=== PATIENT | female | born 2000 | race Caucasian/White ===

== ENCOUNTER → 2024-09-30 | Outpatient (CLI) | payer OTHER, SELFPAY ==
--- NOTE | 2024-10-01 07:30 | STRESSREP ---
Stress Test Report Exercise stress test. 24-year-old lady with a history of cardiac dysrhythmia Stress protocol: Resting EKG demonstrates normal sinus rhythm with a rate of 69 bpm resting blood pressure is 110/70 mmHg. The patient exercised according to the regular Paul protocol for a total duration of 10 minutes attaining a maximum heart rate of 187 bpm which was 96% of maximum predicted heart rate; the maximum workload was 13.4 metabolic equivalents. At rest there were no ST or T wave changes noted to suggest ischemia and at peak exercise upsloping ST changes only were noted which did not meet the criteria for ischemia. No clinical angina was noted the test was terminated due to the target heart rate being achieved/fatigue. The peak blood pressure was 142/80 mmHg. Rate-pressure product was 25,000. Conclusion: Stress test with no EKG changes for ischemia or arrhythmias noted.
== END | disposition home or self-care (01) ==
LOC: CVS 09:59
PROVIDERS: PCP Registered Nurse; Referring Provider Internal Medicine Cardiovascular Disease; Visit Provider Internal Medicine Cardiovascular Disease
DX: R00.2 Palpitations (principal); R07.9 Chest pain, unspecified
CPT/HCPCS: 93017